=== PATIENT | male | born 1950 | race Caucasian/White ===

== ENCOUNTER → 2021-02-12 | Outpatient (CLI) | payer MEDICARE ==
--- NOTE | 2021-02-12 16:58 | RAD ---
Exam: CT abdomen/pelvis without intravenous contrast Indication: Elevated PSA, hematuria Comparison: None Technique: Helical CT imaging performed of the abdomen and pelvis without the use of intravenous cont rast. Sagittal and coronal reformats were obtained. One or more of the following individualized dose reduction techniques were utilized for this examinat ion: 1. Automated exposure control 2. Adjustment of the mA and/or kV according to patient size 3. Use of iterative reconstruction technique. Findings: Inherently limited evaluation without intravenous contrast. Lower chest: Lung bases are clear. The heart is normal in size Liver: There is a solid-appearing hypodense lesion in the dome the liver measuring 1.2 cm (image 17, series 2). Possible additional hypodense lesion in the posterior right hepatic lobe measuring 9 mm (i mage 26, series 2). Gallbladder/Biliary Tree: Normal. Pancreas: Normal. Spleen: No symmetrically. There are calcified splenic granulomas. Adrenal Glands: Normal Kidneys/Ureters/Bladder: There is a multinodular mass/masses in the urinary bladder with the largest nodule component at the right ureterovesicular junction measuring 1.2 x 1.5 cm (image 107 series 2). There is mild right hydroureteronephrosis. Left kidney and ureter are normal. Reproductive Organs: Prostate gland is mildly enlarged measuring 4.6 x 3.8 x 3.2 cm. Stomach, small bowel, and colon: Small hiatal hernia. The small bowel is normal. The colon is unremar kable. Vasculature: Abdominal aorta is normal in caliber Lymph Nodes: No lymphadenopathy. Peritoneum and retroperitoneum: No free fluid or free air. Bones: No acute osseous abnormality. There is grade 1 spinal listhesis at L4-L5 multilevel degenerati ve disc disease, greatest at L1-L2. Probable hemangioma in the L3 vertebral body. Impression: 1. Multinodular mass or masses in the bladder suspicious for neoplasm. This involves the right urete rovesicular junction and results in mild right hydroureteronephrosis. 2. There are 2 indeterminate liver lesions with greater than fluid density. Recommend CT or MRI with contrast to further evaluate. 3. Mildly enlarged prostate gland. Electronically signed by: Aleksandra Stiles MD (02/12/2021 4:56 PM) [id number]
== END ==
LOC: CT 10:04
PROVIDERS: ATTEND Internal Medicine
DX: N40.0 Benign prostatic hyperplasia without lower urinary tract symptoms (principal); R97.20 Elevated prostate specific antigen [PSA]; N13.30 Unspecified hydronephrosis; K44.9 Diaphragmatic hernia without obstruction or gangrene; D73.89 Other diseases of spleen; M43.16 Spondylolisthesis, lumbar region; M51.36 Other intervertebral disc degeneration, lumbar region
CPT/HCPCS: 74176